=== PATIENT | male | born 1950 | race Caucasian/White ===

== ENCOUNTER 2023-04-04 17:28 | Emergency (ER) | payer MEDICARE ==
[~2023-04-04] VITALS: Wt 46.7 kg
[2023-04-04 18:18] LABS: BASO # 0.1 10*3/uL (0.0-0.1); BASO % 0.7 % (0.0-1.0); EOS # 0.1 10*3/uL (0.0-0.4); EOS % 0.9 % (1.0-4.0); HEMATOCRIT 33.9 % (42.0-52.0); LYMPH # 1.7 10*3/uL (1.3-4.4); MEAN CELL VOLUME 90.4 fl (80.0-94.0); MEAN CORPUSCULAR HGB 30.4 pg (27.0-31.0); MEAN CORPUSCULAR HGB CONC 33.6 g/dl (33.0-37.0); MEAN PLATELET VOLUME 9.6 fl (9.6-12.3); MONO # 0.6 10*3/uL (0.1-1.0); MONO % 8.5 % (3.0-9.0); NEUT # 4.9 10*3/uL (2.3-7.9); NEUT % 66.8 % (47.0-73.0); PLATELET COUNT AUTOMATED 351 10*3/uL (130-400); RED BLOOD COUNT 3.75 10*6/uL (4.50-5.90); RED CELL DISTRI WIDTH 13.5 % (0-14.5); WHITE BLOOD COUNT 7.4 10*3/uL (4.8-10.8)
[2023-04-04] MEDS ORDERED: HALOPERIDOL1 MG PO (18:30)
[2023-04-04] MEDS ORDERED: 8 HOUR650 MG PO (18:31)
[2023-04-04] MEDS ORDERED: ASPIR-TRIN325 MG PO (18:32)
[2023-04-04] MEDS ORDERED: TENORMIN50 MG PO (18:33)
[2023-04-04] MEDS ORDERED: ATROPINE SULFATE OP (18:34)
[2023-04-04] MEDS ORDERED: TOPCARE LAXATIVE5 MG PO (18:35)
[2023-04-04] MEDS ORDERED: DILAUDID1 MG/1 M1 PO (18:39)
[2023-04-04 18:41] LABS: ALKALINE PHOSPHATASE 112 U/L (46-116); BUN 18 mg/dl (9-23); CHLORIDE 101 mmol/L (98-107); LIPASE 34 U/L (12-53); POTASSIUM 3.8 mmol/L (3.4-5.1); SGPT/ALT 14 U/L (10-49)
[2023-04-04] MEDS ORDERED: HYDROCODONE-AC1 EACH PO (18:42)
[2023-04-04] MEDS ORDERED: Ipratropium Brom3 ML INH (18:44)
[2023-04-04] MEDS ORDERED: LORAZEPAM2 MG PO (18:45)
[2023-04-04] MEDS ORDERED: REGLAN10 M1 PO (18:46)
[2023-04-04 20:19] LABS: BILIRUBIN Negative (Negative); BLOOD Negative (Negative); CLARITY Clear (Clear); COLOR Yellow (Yellow); GLUCOSE Negative (Negative); KETONE Negative (Negative); LEUKO ESTERASE Negative (Negative); NITRITE Negative (Negative)
[2023-04-04 20:26] LABS: URINE AMPHETAMINES Negative (1000ng/ml); URINE BARBITURATES Negative (200ng/ml); URINE BENZODIAZEPINES Negative (200ng/ml); URINE CANNABINOIDS (THC) Negative (50ng/ml); URINE COCAINE Negative (300ng/ml); URINE METHADONE Negative (300ng/ml); URINE OPIATES Positive (300ng/ml); URINE PHENCYCLIDINE Negative (25ng/ml)
[2023-04-04 20:29] LABS: BACTERIA TRACE; RBC 0-2 rbc/hpf (0-2); WBC 0-2 wbc/hpf (0-5)
[2023-04-04] MEDS ORDERED: VENT7GM INH (22:29)
== END 2023-04-04 22:30 ==
LOC: ED 17:28
PROVIDERS: Emergency Medicine
DX: F03.90 Unspecified dementia, unspecified severity, without behavioral disturbance, psychotic disturbance, mood disturbance, and anxiety (principal); Z20.822 Contact with and (suspected) exposure to COVID-19; R79.82 Elevated C-reactive protein (CRP); F63.81 Intermittent explosive disorder; D64.9 Anemia, unspecified; Z79.899 Other long term (current) drug therapy; Z79.82 Long term (current) use of aspirin